=== PATIENT | male | born 1970 | race African-American/Black ===

== ENCOUNTER 2018-07-17 13:00 | Emergency (ER) | payer SELFPAY ==
[2018-07-17] MEDS ORDERED: cloNIDine 0.1 MG Tab PO ONE ×2 (13:16→15:11)
[2018-07-17] MEDS ORDERED: Sodium Chloride 0.9% 1,000 ML IV ONE (13:16)
--- NOTE | 2018-07-17 13:29 | EDM.PDOC ---
ED HPI GENERAL MEDICAL PROBLEM - General Chief Complaint: Cardiovascular Problem Stated Complaint: HIGH BP Time Seen by Provider: 07/17/18 13:03 Source of Information: Reports: Patient History Limitations: Reports: No Limitations - History of Present Illness INITIAL COMMENTS - FREE TEXT/NARRATIVE: HISTORY AND PHYSICAL: History of present illness: Patient is a 48-year-old male who presents to the emergency room for evaluation after being told he had high blood pressure. Patient was at an employment physical when he was told that his blood pressure was 260s over 200's. Patient reports that he was told approximately 6 years ago that he had high blood pressure but then quit smoking and reports that his blood pressure had returned to normal. Review of systems: As per history of present illness and below otherwise all systems reviewed and negative. Past medical history: As per history of present illness and as reviewed below otherwise noncontributory. Surgical history: As per history of present illness and as reviewed below otherwise noncontributory. Social history: See social history for further information Family history: As per history of present illness and as reviewed below otherwise noncontributory. Physical exam: General: Patient is a well-developed and well-nourished 48-year-old - [place] male. Alert and oriented. Nontoxic appearing and in no acute distress. HEENT: Atraumatic, normocephalic, pupils equal and reactive bilaterally, negative for conjunctival pallor or scleral icterus, mucous membranes moist, TMs normal bilaterally, throat clear, neck supple, nontender, trachea midline. No drooling or trismus noted. No meningeal signs. No hot potato voice noted. Lungs: Clear to auscultation, breath sounds equal bilaterally, chest nontender. Heart: S1S2, regular rate and rhythm without overt murmur Abdomen: Soft, nondistended, nontender. Negative for masses or hepatosplenomegaly. Negative for costovertebral tenderness. Pelvis: Stable nontender. Genitourinary: Deferred. Rectal: Deferred. Skin: Intact, warm, dry. No lesions or rashes noted. Extremities: Atraumatic, negative for cords or calf pain. Neurovascular unremarkable. Neuro: Awake, alert, oriented. Cranial nerves II through XII unremarkable. Cerebellum unremarkable. Motor and sensory unremarkable throughout. Exam nonfocal. Notes: Lab work is unremarkable. EKG and chest x-ray are unremarkable. Patient continues to be asymptomatic. Patient most recent blood pressure before discharge is 180/102. Disposition was discussed including admission which he declines. He is aware of the risks of discharge with elevated blood pressure. He states he will follow up closely with a primary care provider, calling in the morning to make an appointment. Discharge instructions were reviewed and discussed. He voices understanding and is agreeable to plan of care. Denies any further questions or concerns at this time. Diagnostics: CBC, CMP, EKG, chest x-ray, UA Therapeutics: IV fluid, clonidine, lisinopril Prescription: Lisinopril Impression: Uncontrolled hypertension Plan: 1. Please start taking an 81 mg aspirin once daily. 2. May start lisinopril 10mg once daily. This medication may need to be adjusted so do not want to to follow-up with the primary care provider for further evaluation and management. Please make a follow-up appointment to be seen in the next 1-2 days. 3. Return to the ED as needed and as discussed. Definitive disposition and diagnosis as appropriate pending reevaluation and review of above. - Related Data Allergies Allergy/AdvReac Type Severity Reaction Status Date / Time No Known Allergies Allergy Verified 07/17/18 13:10 Home Meds: Home Meds Lisinopril [Zestril] 10 mg PO DAILY #30 tablet 07/17/18 [Rx] Past Medical History Cardiovascular History: Reports: Hypertension - Infectious Disease History Infectious Disease History: Reports: None - Past Surgical History Other Musculoskeletal Surgeries/Procedures:: right hand surgery Social & Family History - Family History Family Medical History: Noncontributory - Tobacco Use Smoking Status *Q: Former Smoker Used Tobacco, but Quit: Yes Month/Year Tobacco Last Used: 6 years ago - Recreational Drug Use Recreational Drug Use: No ED ROS GENERAL - Review of Systems Review Of Systems: ROS reveals no pertinent complaints other than HPI. ED EXAM, GENERAL - Physical Exam Exam: See Below (See dictation) Course - Vital Signs Last Recorded V/S: Last Vital Signs Temp 98.2 F 07/17/18 13:02 Pulse 94 07/17/18 13:02 Resp 18 07/17/18 13:02 BP 218/138 H 07/17/18 14:48 Pulse Ox 99 07/17/18 13:02 - Orders/Labs/Meds Orders: Active Orders 24 hr Category Date Time Status EKG Documentation Completion [RC] STAT Care 07/17/18 13:16 Active Labs: Laboratory Tests 07/17/18 07/17/18 07/17/18 Range/Units 13:23 13:23 14:40 WBC 7.34 (4.0-11.0) K/uL RBC 5.75 (4.50-5.90) M/uL Hgb 17.5 H (13.0-17.0) g/dL Hct 50.8 H (38.0-50.0) % MCV 88.3 (80.0-98.0) fL MCH 30.4 (27.0-32.0) pg MCHC 34.4 (31.0-37.0) g/dL RDW Std Deviation 43.3 (28.0-62.0) fl RDW Coeff of Lai 13 (11.0-15.0) % Plt Count 127 L (150-400) K/uL MPV 13.40 H (7.40-12.00) fL Neut % (Auto) 72.2 (48.0-80.0) % Lymph % (Auto) 17.7 (16.0-40.0) % [place] % (Auto) 8.2 (0.0-15.0) % Eos % (Auto) 1.2 (0.0-7.0) % Baso % (Auto) 0.7 (0.0-1.5) % Neut # (Auto) 5.3 (1.4-5.7) K/uL Lymph # (Auto) 1.3 (0.6-2.4) K/uL [place] # (Auto) 0.6 (0.0-0.8) K/uL Eos # (Auto) 0.1 (0.0-0.7) K/uL Baso # (Auto) 0.1 (0.0-0.1) K/uL Nucleated RBC % 0.0 /100WBC Nucleated RBCs # 0 K/uL Sodium 136 (136-148) mmol/L Potassium 3.5 (3.5-5.1) mmol/L Chloride 99 (98-107) mmol/L Carbon Dioxide 27.9 (21.0-32.0) mmol/L BUN 11 (7.0-18.0) mg/dL Creatinine 1.3 (0.8-1.3) mg/dL Est Cr Clr Drug Dosing 68.74 mL/min Estimated GFR (MDRD) 58.7 ml/min Glucose 103 (74-106) mg/dL Calcium 9.5 (8.5-10.1) mg/dL Total Bilirubin 0.6 (0.2-1.0) mg/dL AST 58 H (15-37) IU/L ALT 70 H (14-63) IU/L Alkaline Phosphatase 69 (46-116) U/L Total Protein 8.5 H (6.4-8.2) g/dL Albumin 4.3 (3.4-5.0) g/dL Globulin 4.2 H (2.6-4.0) g/dL Albumin/Globulin Ratio 1.0 (0.9-1.6) Urine Color YELLOW Urine Appearance CLEAR Urine pH 6.0 (5.0-8.0) Ur Specific [place] <= 1.005 (1.001-1.035) Urine Protein NEGATIVE (NEGATIVE) mg/dL Urine Glucose (UA) NEGATIVE (NEGATIVE) mg/dL Urine Ketones NEGATIVE (NEGATIVE) mg/dL Urine Occult Blood NEGATIVE (NEGATIVE) Urine Nitrite NEGATIVE (NEGATIVE) Urine Bilirubin NEGATIVE (NEGATIVE) Urine Urobilinogen 0.2 (<2.0) EU/dL Ur Leukocyte Esterase NEGATIVE (NEGATIVE) Meds: Medications Discontinued Medications Generic Name Dose Route Start Last Admin Trade Name Freq PRN Reason Stop Dose Admin Clonidine HCl 0.1 mg 07/17/18 13:16 07/17/18 13:26 Catapres PO 07/17/18 13:17 0.1 mg ONETIME ONE Administration Clonidine HCl 0.1 mg 07/17/18 15:11 Catapres PO 07/17/18 15:12 ONETIME ONE Sodium Chloride 1,000 mls @ 999 mls/hr 07/17/18 13:16 07/17/18 13:26 Normal Saline IV 07/17/18 14:16 999 mls/hr STAT ONE Administration Lisinopril 20 mg 07/17/18 13:57 07/17/18 14:12 Prinivil PO 07/17/18 13:58 20 mg ONETIME ONE Administration Departure - Departure Time of Disposition: 14:41 Disposition: Home, Self-Care 01 Clinical Impression: Uncontrolled hypertension Prescriptions: Lisinopril [Zestril] 10 mg PO DAILY #30 tablet Instructions: Hypertension Forms: ED Department Discharge Additional Instructions: The following information is given to patients seen in the emergency department who are being discharged to home. This information is to outline your options for follow-up care. We provide all patients seen in our emergency department with a follow-up referral. The need for follow-up, as well as the timing and circumstances, are variable depending upon the specifics of your emergency department visit. If you don't have a primary care physician on staff, we will provide you with a referral. We always advise you to contact your personal physician following an emergency department visit to inform them of the circumstance of the visit and for follow-up with them and/or the need for any referrals to a consulting specialist. The emergency department will also refer you to a specialist when appropriate. This referral assures that you have the opportunity for follow-up care with a specialist. All of these measure are taken in an effort to provide you with optimal care, which includes your follow-up. Under all circumstances we always encourage you to contact your private physician who remains a resource for coordinating your care. When calling for follow-up care, please make the office aware that this follow-up is from your recent emergency room visit. If for any reason you are refused follow-up, please contact the [facility] Emergency Department at and asked to speak to the emergency department charge nurse. [facility] [address] [place] [address] [place] [address] 1. Please start taking an 81 mg aspirin once daily. 2. May start lisinopril 10mg once daily. This medication may need to be adjusted so do not want to to follow-up with the primary care provider for further evaluation and management. Please make a follow-up appointment to be seen in the next 1-2 days. 3. Return to the ED as needed and as discussed. - My Orders Last 24 Hours: My Active Orders 07/17/18 13:16 EKG Documentation Completion [RC] STAT - Assessment/Plan Last 24 Hours: My Active Orders 07/17/18 13:16 EKG Documentation Completion [RC] STAT
[2018-07-17] MEDS ORDERED: Lisinopril 10 MG Tab PO ONE (13:57)
--- NOTE | 2018-07-17 14:00 | CR ---
EXAMINATION: Portable chest radiograph. HISTORY: Hypertension. FINDINGS: The trachea is midline. The cardiomediastinal silhouette is within normal limits. No pulmonary infiltrates, effusions or pneumothorax. Osseous structures appear unremarkable. Cervical fusion hardware noted. IMPRESSION: No acute cardiopulmonary process.
== END 2018-07-17 15:37 | disposition home or self-care (01) ==
LOC: MW.ED 13:00
DX: I10 Essential (primary) hypertension (principal); Z87.891 Personal history of nicotine dependence
CPT/HCPCS: 36415; 71045; 80053; 81003; 85025; 93005; 96360; 99284; A9270; J7040

== ENCOUNTER 2018-09-10 11:10 | Observation (INO) | payer SELFPAY ==
[2018-09-10] MEDS ORDERED: Sodium Chloride 0.9% 10 ML Syringe FLUSH PRN (11:13)
[2018-09-10] MEDS ORDERED: Sodium Chloride 0.9% 2.5 ML Syringe FLUSH PRN (11:13)
--- NOTE | 2018-09-10 11:15 | EDM.PDOC ---
ED HPI GENERAL MEDICAL PROBLEM - General Chief Complaint: Cardiovascular Problem Stated Complaint: CHEST PAINS Time Seen by Provider: 09/10/18 11:12 - History of Present Illness INITIAL COMMENTS - FREE TEXT/NARRATIVE: HISTORY AND PHYSICAL: History of present illness: Patient's a 48-year-old black male with history of hypertension who presents with sternal chest pain it's been intermittent for 4 days he states is no precipitating or aggravating factors she states this is a sharp squeezing pain that comes on somewhat abruptly and he felt maybe due to gas. There's been no associated shortness of breath diaphoresis nausea vomiting or palpitations. He is without chest pain on arrival Review of systems: As per history of present illness and below otherwise all systems reviewed and negative. Past medical history: As per history of present illness and as reviewed below otherwise noncontributory. Surgical history: As per history of present illness and as reviewed below otherwise noncontributory. Social history: No reported history of drug or alcohol abuse. Family history: As per history of present illness and as reviewed below otherwise noncontributory. Physical exam: HEENT: Atraumatic, normocephalic, pupils reactive, negative for conjunctival pallor or scleral icterus, mucous membranes moist, throat clear, neck supple, nontender, trachea midline. Lungs: Clear to auscultation, breath sounds equal bilaterally, chest nontender. Heart: S1S2, regular, negative for clicks, rubs, or JVD. Abdomen: Soft, nondistended, nontender. Negative for masses or hepatosplenomegaly. Negative for costovertebral tenderness. Pelvis: Stable nontender. Genitourinary: Deferred. Rectal: Deferred. Extremities: Atraumatic, negative for cords or calf pain. Neurovascular unremarkable. Neuro: Awake, alert, oriented. Cranial nerves II through XII unremarkable. Cerebellum unremarkable. Motor and sensory unremarkable throughout. Exam nonfocal. Diagnostics: CBC CMP troponin PT/INR lipase chest x-ray EKG Therapeutics: IV O2 monitor Impression: #1 chest pain #2 history of hypertension Definitive disposition and diagnosis as appropriate pending reevaluation and review of above. - Related Data Allergies Allergy/AdvReac Type Severity Reaction Status Date / Time No Known Allergies Allergy Verified 09/10/18 11:17 Home Meds: Home Meds Lisinopril [Zestril] 10 mg PO DAILY #30 tablet 07/17/18 [Rx] Past Medical History Cardiovascular History: Reports: Hypertension - Infectious Disease History Infectious Disease History: Reports: None - Past Surgical History Other Musculoskeletal Surgeries/Procedures:: right hand surgery Social & Family History - Family History Family Medical History: Noncontributory ED ROS GENERAL - Review of Systems Review Of Systems: ROS reveals no pertinent complaints other than HPI. ED EXAM, GENERAL - Physical Exam Exam: See Below (See dictation) Course - Vital Signs Last Recorded V/S: Last Vital Signs Temp 36.8 C 09/10/18 11:10 Pulse 76 09/10/18 11:51 Resp 15 09/10/18 11:51 BP 168/107 H 09/10/18 12:08 Pulse Ox 97 09/10/18 11:51 - Orders/Labs/Meds Orders: Active Orders 24 hr Category Date Time Status Cardiac Monitoring [RC] . DIRECTED Care 09/10/18 11:13 Active EKG Documentation Completion [RC] STAT Care 09/10/18 11:13 Active Chest 1V Frontal [CR] Stat Exams 09/10/18 11:13 Taken Sodium Chloride 0.9% [Saline Flush] Med 09/10/18 11:13 Active 10 ml FLUSH ASDIRECTED PRN Sodium Chloride 0.9% [Saline Flush] Med 09/10/18 11:13 Active 2.5 ml FLUSH ASDIRECTED PRN Saline Lock Insert [OM.PC] Stat Oth 09/10/18 11:13 Ordered Medication Orders Sodium Chloride (Saline Flush) 10 ml FLUSH ASDIRECTED PRN PRN Reason: Keep Vein Open Last Admin: 09/10/18 11:19 Dose: 10 ml Sodium Chloride (Saline Flush) 2.5 ml FLUSH ASDIRECTED PRN PRN Reason: Keep Vein Open Last Admin: 09/10/18 11:19 Dose: 2.5 ml Labs: Laboratory Tests 09/10/18 09/10/18 09/10/18 Range/Units 11:18 11:18 11:18 WBC 7.14 (4.0-11.0) K/uL RBC 5.01 (4.50-5.90) M/uL Hgb 14.7 (13.0-17.0) g/dL Hct 43.4 (38.0-50.0) % MCV 86.6 (80.0-98.0) fL MCH 29.3 (27.0-32.0) pg MCHC 33.9 (31.0-37.0) g/dL RDW Std Deviation 44.6 (28.0-62.0) fl RDW Coeff of Lai 14 (11.0-15.0) % Plt Count 141 L (150-400) K/uL MPV 12.70 H (7.40-12.00) fL Neut % (Auto) 59.6 (48.0-80.0) % Lymph % (Auto) 28.2 (16.0-40.0) % [place] % (Auto) 10.4 (0.0-15.0) % Eos % (Auto) 1.1 (0.0-7.0) % Baso % (Auto) 0.7 (0.0-1.5) % Neut # (Auto) 4.3 (1.4-5.7) K/uL Lymph # (Auto) 2.0 (0.6-2.4) K/uL [place] # (Auto) 0.7 (0.0-0.8) K/uL Eos # (Auto) 0.1 (0.0-0.7) K/uL Baso # (Auto) 0.1 (0.0-0.1) K/uL Nucleated RBC % 0.0 /100WBC Nucleated RBCs # 0 K/uL INR 1.03 Sodium 141 (136-148) mmol/L Potassium 3.5 (3.5-5.1) mmol/L Chloride 104 (98-107) mmol/L Carbon Dioxide 28.1 (21.0-32.0) mmol/L BUN 15 (7.0-18.0) mg/dL Creatinine 1.3 (0.8-1.3) mg/dL Est Cr Clr Drug Dosing 68.74 mL/min Estimated GFR (MDRD) > 60.0 ml/min Glucose 103 (74-106) mg/dL Calcium 8.9 (8.5-10.1) mg/dL Total Bilirubin 0.6 (0.2-1.0) mg/dL AST 27 (15-37) IU/L ALT 35 (14-63) IU/L Alkaline Phosphatase 54 (46-116) U/L Troponin I < 0.050 (0.000-0.056) ng/mL Total Protein 7.5 (6.4-8.2) g/dL Albumin 4.0 (3.4-5.0) g/dL Globulin 3.5 (2.6-4.0) g/dL Albumin/Globulin Ratio 1.1 (0.9-1.6) Lipase 96 (73-393) U/L Meds: Medications Generic Name Dose Route Start Last Admin Trade Name Freq PRN Reason Stop Dose Admin Sodium Chloride 10 ml 09/10/18 11:13 09/10/18 11:19 Saline Flush FLUSH 10 ml ASDIRECTED PRN Administration Keep Vein Open Sodium Chloride 2.5 ml 09/10/18 11:13 09/10/18 11:19 Saline Flush FLUSH 2.5 ml ASDIRECTED PRN Administration Keep Vein Open Discontinued Medications Generic Name Dose Route Start Last Admin Trade Name Freq PRN Reason Stop Dose Admin Aspirin 324 mg 09/10/18 11:16 09/10/18 11:19 Aspirin PO 09/10/18 11:17 324 mg ONETIME ONE Administration Aspirin Confirm 09/10/18 11:17 09/10/18 11:26 Aspirin Administered 09/10/18 11:18 Not Given Dose 324 mg .ROUTE .STK-MED ONE Nitroglycerin 1 gm 09/10/18 11:16 09/10/18 11:19 Nitro-Bid 2% TOP 09/10/18 11:17 1 gm ONETIME ONE Administration Nitroglycerin Confirm 09/10/18 11:17 09/10/18 11:26 Nitro-Bid 2% Administered 09/10/18 11:18 Not Given Dose 1 gm .ROUTE .STK-MED ONE Departure - Departure Time of Disposition: 12:12 Disposition: Refer to Observation Condition: Good Clinical Impression: Chest pain, Hypertension Forms: ED Department Discharge - My Orders Last 24 Hours: My Active Orders 09/10/18 11:13 Cardiac Monitoring [RC] . DIRECTED EKG Documentation Completion [RC] STAT Chest 1V Frontal [CR] Stat Sodium Chloride 0.9% [Saline Flush] 10 ml FLUSH ASDIRECTED PRN Sodium Chloride 0.9% [Saline Flush] 2.5 ml FLUSH ASDIRECTED PRN Saline Lock Insert [OM.PC] Stat - Assessment/Plan Last 24 Hours: My Active Orders 09/10/18 11:13 Cardiac Monitoring [RC] . DIRECTED EKG Documentation Completion [RC] STAT Chest 1V Frontal [CR] Stat Sodium Chloride 0.9% [Saline Flush] 10 ml FLUSH ASDIRECTED PRN Sodium Chloride 0.9% [Saline Flush] 2.5 ml FLUSH ASDIRECTED PRN Saline Lock Insert [OM.PC] Stat
[2018-09-10] MEDS ORDERED: Nitroglycerin 2% Oint 1 GM UD Packet TOP ONE (11:16)
[2018-09-10] MEDS ORDERED: Aspirin 81 MG Tab.Chew PO ONE (11:16)
[2018-09-10] MEDS ORDERED: Nitroglycerin 2% Oint 1 GM UD Packet ONE (11:17)
[2018-09-10] MEDS ORDERED: Aspirin 81 MG Tab.Chew ONE (11:17)
[2018-09-10 11:50] LABS: CHLORIDE,CL 104 mmol/L (98-107); SODIUM,NA 141 mmol/L (136-148)
[2018-09-10] MEDS ORDERED: Nicotine 14 MG/24 Hr Patch TRDERM ONE (12:21)
--- NOTE | 2018-09-10 12:28 | CR ---
INDICATION: Chest pain TECHNIQUE: Chest 1 view COMPARISON: None available FINDINGS: The heart appears borderline enlarged, however this is likely accentuated due to AP technique. The lungs are clear. The pulmonary vasculature is within normal limits. The visualized osseous structures are grossly unremarkable. IMPRESSION: No acute cardiopulmonary process. Dictated by Keke Roblero MD @ 09/10/2018 12:25:54 PM Dictated by: Keke Roblero MD @ 09/10/2018 12:26:01 (Electronically Signed)
[2018-09-10] MEDS ORDERED: Ondansetron 4 MG/2 ML SDV IVPUSH PRN (18:44)
--- NOTE | 2018-09-10 18:48 | PCM.HP ---
H&P History of Present Illness - General Date of Service: 09/10/18 Admit Problem/Dx: Admission Diagnosis/Problem Admission Diagnosis/Problem Chest pain, rule out acute myocardial infarction - History of Present Illness Initial Comments - Free Text/Narative: 48 yo male with pmh of hypertension who presents with four day history of chest pain. The pain is intermitent substernal chest pressure. He describes it as a baseball under his sternum. Nothing makes it better or worse besides time. He denies any shortness of breath, cough, or fevers. He thinks the pain is from gas. Epigastric Pain Score (Numeric/FACES): 1 - Related Data Allergies/Adverse Reactions: Allergies Allergy/AdvReac Type Severity Reaction Status Date / Time No Known Allergies Allergy Verified 09/10/18 11:17 Home Medications: Home Meds Lisinopril [Zestril] 10 mg PO DAILY #30 tablet 07/17/18 [Rx] Diltiazem [Cardizem CD] 120 mg PO DAILY #30 cap.cd 09/11/18 [Rx] Pantoprazole [ProTONIX] 40 mg PO DAILY #30 tab.cr 09/11/18 [Rx] Past Medical History HEENT History: Reports: Impaired Vision Other HEENT History: glasses Cardiovascular History: Reports: Hypertension Genitourinary History: Reports: Other (See Below) Other Genitourinary History: reports bph symptoms - Infectious Disease History Infectious Disease History: Reports: None - Past Surgical History Musculoskeletal Surgical History: Reports: Other (See Below) Other Musculoskeletal Surgeries/Procedures:: right hand surgery Social & Family History - Family History Family Medical History: Noncontributory - Tobacco Use Smoking Status *Q: Former Smoker Years of Tobacco use: 6 Packs/Tins Daily: 0.5 Used Tobacco, but Quit: Yes Month/Year Tobacco Last Used: 6 yrs ago Tobacco Use Comment: pt states vapes, approx equal to 1 pdd - Caffeine Use Caffeine Use: Reports: None - Alcohol Use Days Per Week of Alcohol Use: 3 Number of Drinks Per Day: 2 Total Drinks Per Week: 6 - Recreational Drug Use Recreational Drug Use: No H&P Review of Systems - Review of Systems: Review Of Systems: ROS reveals no pertinent complaints other than HPI. Exam - Exam Exam: See Below - Vital Signs Vital Signs: Last Vital Signs Temp 36.6 C 09/10/18 16:00 Pulse 76 09/10/18 16:00 Resp 16 09/10/18 16:00 BP 161/95 H 09/10/18 16:00 Pulse Ox 97 09/10/18 16:00 Weight: 88.451 kg - Exam General: Alert, Oriented HEENT: Mucosa Moist & [place] Lungs: Clear to Auscultation, Normal Respiratory Effort Cardiovascular: Regular Rate, Regular Rhythm GI/Abdominal Exam: Normal Bowel Sounds, Soft, Non-Tender Extremities: Non-Tender, No Pedal Edema Skin: Warm, Dry, Intact - Patient Data Lab Results Last 24 hrs: Laboratory Results - last 24 hr 09/10/18 09/10/18 09/10/18 Range/Units 11:18 11:18 11:18 WBC 7.14 (4.0-11.0) K/uL RBC 5.01 (4.50-5.90) M/uL Hgb 14.7 (13.0-17.0) g/dL Hct 43.4 (38.0-50.0) % MCV 86.6 (80.0-98.0) fL MCH 29.3 (27.0-32.0) pg MCHC 33.9 (31.0-37.0) g/dL RDW Std Deviation 44.6 (28.0-62.0) fl RDW Coeff of Lai 14 (11.0-15.0) % Plt Count 141 L (150-400) K/uL MPV 12.70 H (7.40-12.00) fL Neut % (Auto) 59.6 (48.0-80.0) % Lymph % (Auto) 28.2 (16.0-40.0) % [place] % (Auto) 10.4 (0.0-15.0) % Eos % (Auto) 1.1 (0.0-7.0) % Baso % (Auto) 0.7 (0.0-1.5) % Neut # (Auto) 4.3 (1.4-5.7) K/uL Lymph # (Auto) 2.0 (0.6-2.4) K/uL [place] # (Auto) 0.7 (0.0-0.8) K/uL Eos # (Auto) 0.1 (0.0-0.7) K/uL Baso # (Auto) 0.1 (0.0-0.1) K/uL Nucleated RBC % 0.0 /100WBC Nucleated RBCs # 0 K/uL INR 1.03 Sodium 141 (136-148) mmol/L Potassium 3.5 (3.5-5.1) mmol/L Chloride 104 (98-107) mmol/L Carbon Dioxide 28.1 (21.0-32.0) mmol/L BUN 15 (7.0-18.0) mg/dL Creatinine 1.3 (0.8-1.3) mg/dL Est Cr Clr Drug Dosing 68.74 mL/min Estimated GFR (MDRD) > 60.0 ml/min Glucose 103 (74-106) mg/dL Calcium 8.9 (8.5-10.1) mg/dL Total Bilirubin 0.6 (0.2-1.0) mg/dL AST 27 (15-37) IU/L ALT 35 (14-63) IU/L Alkaline Phosphatase 54 (46-116) U/L Troponin I < 0.050 (0.000-0.056) ng/mL Total Protein 7.5 (6.4-8.2) g/dL Albumin 4.0 (3.4-5.0) g/dL Globulin 3.5 (2.6-4.0) g/dL Albumin/Globulin Ratio 1.1 (0.9-1.6) Lipase 96 (73-393) U/L // Range/Units 17:20 WBC (4.0-11.0) K/uL RBC (4.50-5.90) M/uL Hgb (13.0-17.0) g/dL Hct (38.0-50.0) % MCV (80.0-98.0) fL MCH (27.0-32.0) pg MCHC (31.0-37.0) g/dL RDW Std Deviation (28.0-62.0) fl RDW Coeff of Lai (11.0-15.0) % Plt Count (150-400) K/uL MPV (7.40-12.00) fL Neut % (Auto) (48.0-80.0) % Lymph % (Auto) (16.0-40.0) % [place] % (Auto) (0.0-15.0) % Eos % (Auto) (0.0-7.0) % Baso % (Auto) (0.0-1.5) % Neut # (Auto) (1.4-5.7) K/uL Lymph # (Auto) (0.6-2.4) K/uL [place] # (Auto) (0.0-0.8) K/uL Eos # (Auto) (0.0-0.7) K/uL Baso # (Auto) (0.0-0.1) K/uL Nucleated RBC % /100WBC Nucleated RBCs # K/uL INR Sodium (136-148) mmol/L Potassium (3.5-5.1) mmol/L Chloride (98-107) mmol/L Carbon Dioxide (21.0-32.0) mmol/L BUN (7.0-18.0) mg/dL Creatinine (0.8-1.3) mg/dL Est Cr Clr Drug Dosing mL/min Estimated GFR (MDRD) ml/min Glucose (74-106) mg/dL Calcium (8.5-10.1) mg/dL Total Bilirubin (0.2-1.0) mg/dL AST (15-37) IU/L ALT (14-63) IU/L Alkaline Phosphatase (46-116) U/L Troponin I < 0.050 (0.000-0.056) ng/mL Total Protein (6.4-8.2) g/dL Albumin (3.4-5.0) g/dL Globulin (2.6-4.0) g/dL Albumin/Globulin Ratio (0.9-1.6) Lipase (73-393) U/L Result Diagrams: 09/10/18 11:18 09/10/18 11:18 Problem List Initiated/Reviewed/Updated: Yes Orders Last 24hrs: Active Orders 24 hr Category Date Time Status Admission Status [Patient Status] [ADT] Stat ADT 09/10/18 12:12 Active Antiembolic Devices [RC] PER UNIT ROUTINE Care 09/10/18 18:45 Ordered Cardiac Monitoring [RC] . DIRECTED Care 09/10/18 11:13 Active Oxygen Therapy [RC] PRN Care 09/10/18 18:44 Ordered Telemetry Monitoring [Cardiac Monitoring] [RC] Q8H Care 09/10/18 11:15 Active Up ad Triny [RC] ASDIRECTED Care 09/10/18 18:44 Ordered VTE/DVT Education [RC] PER UNIT ROUTINE Care 09/10/18 18:44 Ordered Vital Signs [RC] Q4H Care 09/10/18 18:44 Ordered Cardiac [Heart Healthy Diet] [DIET] Diet 09/10/18 Dinner Active TROPONIN I [CHEM] Routine Lab 09/10/18 23:18 Ordered Lisinopril [Prinivil] Med 09/11/18 09:00 Ordered 10 mg PO DAILY Ondansetron [Zofran] Med 09/10/18 18:44 Ordered 4 mg IVPUSH Q4H PRN Pantoprazole [ProTONIX] Med 09/10/18 18:45 Ordered 40 mg PO DAILY Sodium Chloride 0.9% [Saline Flush] Med 09/10/18 11:13 Active 10 ml FLUSH ASDIRECTED PRN Sodium Chloride 0.9% [Saline Flush] Med 09/10/18 11:13 Active 2.5 ml FLUSH ASDIRECTED PRN Saline Lock Insert [OM.PC] Stat Oth 09/10/18 11:13 Ordered Sequential Compression Device [OM.PC] Per Unit Routine Oth 09/10/18 18:44 Ordered Resuscitation Status Routine Resus Stat 09/10/18 18:44 Ordered Medication Orders Lisinopril (Prinivil) 10 mg PO DAILY ANJALI Pantoprazole Sodium (Protonix) 40 mg PO DAILY ANJALI Sodium Chloride (Saline Flush) 10 ml FLUSH ASDIRECTED PRN PRN Reason: Keep Vein Open Last Admin: 09/10/18 11:19 Dose: 10 ml Sodium Chloride (Saline Flush) 2.5 ml FLUSH ASDIRECTED PRN PRN Reason: Keep Vein Open Last Admin: 09/10/18 11:19 Dose: 2.5 ml Assessment/Plan Comment:: 48 yo male who presents with chest pain. Will trend cardiac enzymes to rule out acute coronary syndrome.
[2018-09-10] MEDS: Pantoprazole 40 MG Tab.CR PO SCH (19:10)
[2018-09-11] MEDS: Pantoprazole 40 MG Tab.CR PO SCH (08:14)
[2018-09-11 08:46] LABS: HEMOGLOBIN A1C 6.1 % (4.5-6.2)
[2018-09-11] MEDS ORDERED: Lisinopril 10 MG Tab PO SCH (09:00)
[2018-09-11] MEDS ORDERED: Diltiazem 120 MG Cap.CD PO SCH (11:15)
--- NOTE | 2018-09-11 11:17 | PCM.DCSUM1 ---
Discharge Summary - Hospital Course Brief History: 48 yo male with pmh of hypertension who presents with four day history of chest pain. The pain is intermitent substernal chest pressure. He describes it as a baseball under his sternum. Nothing makes it better or worse besides time. He denies any shortness of breath, cough, or fevers. He thinks the pain is from gas. Diagnosis: Stroke: No - Discharge Data Discharge Date: 09/11/18 Discharge Disposition: Home, Self-Care 01 Condition: Good - Patient Instructions Diet: Heart Healthy Diet Activity: As Tolerated Showering/Bathing: October Shower Notify Provider of: Fever, Increased Pain, Swelling and Redness, Drainage, Nausea and/or Vomiting - Discharge Plan *PRESCRIPTION DRUG MONITORING PROGRAM REVIEWED*: Not Applicable *COPY OF PRESCRIPTION DRUG MONITORING REPORT IN PATIENT SYLVIA: Not Applicable Prescriptions/Med Rec: Diltiazem [Cardizem CD] 120 mg PO DAILY #30 cap.cd Pantoprazole [ProTONIX] 40 mg PO DAILY #30 tab.cr Home Medications: Home Meds Lisinopril [Zestril] 10 mg PO DAILY #30 tablet 07/17/18 [Rx] Diltiazem [Cardizem CD] 120 mg PO DAILY #30 cap.cd 09/11/18 [Rx] Pantoprazole [ProTONIX] 40 mg PO DAILY #30 tab.cr 09/11/18 [Rx] Patient Handouts: Nonspecific Chest Pain, [id number], Pantoprazole tablets, Diltiazem tablets, Hypertension Referrals: Armond Moore MD [Resident] - 09/18/18 2:00 pm Davi Resendiz [Ordering Only Provider] - - Discharge Summary/Plan Comment DC Time >30 min.: No Discharge Summary/Plan Comment: Discharge Diagnoses: Chest pain -resolved HTN GERD Earnest was admitted for chest pain. Monitored on telemetry, no EKG changes. No further chest pain. Troponins negative, ACS ruled otu. BP remained elevated 170 /100. Continue Lisinopril, but will add Diltiazem 120 mg daily. He is to follow with PCP to monitor BP. He is to have stress test as outpatient to further evaluate for CAD. Total cholesterol 174, HDL 74, LDL 86. A1c 6.1. he was educated on life style change and the need to lower BP. He will also be sent home with Protonix x 1 month for GERD. He is to return to ED or clinic if concerns should arise. - General Info Date of Service: 09/11/18 Admission Dx/Problem (Free Text: Admission Diagnosis/Problem Admission Diagnosis/Problem Chest pain, rule out acute myocardial infarction Subjective Update: Feeling better this morning. Eating well. No chest pain. Eager to go home and back to work. Functional Status: Reports: Pain Controlled, Tolerating Diet, Ambulating, Urinating - Review of Systems General: Reports: No Symptoms. Denies: Fever, Weakness, Fatigue HEENT: Reports: No Symptoms. Denies: Contact Lenses, Visual Changes Pulmonary: Reports: No Symptoms. Denies: Shortness of Breath Cardiovascular: Reports: No Symptoms. Denies: Chest Pain Gastrointestinal: Reports: No Symptoms. Denies: Abdominal Pain, Melena, Nausea , Vomiting Genitourinary: Reports: No Symptoms. Denies: Dysuria, Frequency, Burning Musculoskeletal: Reports: No Symptoms Skin: Reports: No Symptoms Neurological: Reports: No Symptoms Psychiatric: Reports: No Symptoms - Patient Data Vitals - Most Recent: Last Vital Signs Temp 98.6 F 09/11/18 07:28 Pulse 68 09/11/18 07:28 Resp 14 09/11/18 07:28 BP 173/114 H 09/11/18 08:14 Pulse Ox 97 09/11/18 07:28 Weight - Most Recent: 88.451 kg I&O - Last 24 hours: Intake & Output 09/10/18 09/11/18 09/11/18 22:59 06:59 14:59 Intake Total 400 480 Output Total 475 Balance 400 5 Lab Results - Last 24 hrs: Laboratory Results - last 24 hr 09/10/18 09/10/18 09/10/18 Range/Units 11:13 11:13 11:18 WBC 7.14 (4.0-11.0) K/uL RBC 5.01 (4.50-5.90) M/uL Hgb 14.7 (13.0-17.0) g/dL Hct 43.4 (38.0-50.0) % MCV 86.6 (80.0-98.0) fL MCH 29.3 (27.0-32.0) pg MCHC 33.9 (31.0-37.0) g/dL RDW Std Deviation 44.6 (28.0-62.0) fl RDW Coeff of Lai 14 (11.0-15.0) % Plt Count 141 L (150-400) K/uL MPV 12.70 H (7.40-12.00) fL Neut % (Auto) 59.6 (48.0-80.0) % Lymph % (Auto) 28.2 (16.0-40.0) % [place] % (Auto) 10.4 (0.0-15.0) % Eos % (Auto) 1.1 (0.0-7.0) % Baso % (Auto) 0.7 (0.0-1.5) % Neut # (Auto) 4.3 (1.4-5.7) K/uL Lymph # (Auto) 2.0 (0.6-2.4) K/uL [place] # (Auto) 0.7 (0.0-0.8) K/uL Eos # (Auto) 0.1 (0.0-0.7) K/uL Baso # (Auto) 0.1 (0.0-0.1) K/uL Nucleated RBC % 0.0 /100WBC Nucleated RBCs # 0 K/uL INR Sodium (136-148) mmol/L Potassium (3.5-5.1) mmol/L Chloride (98-107) mmol/L Carbon Dioxide (21.0-32.0) mmol/L BUN (7.0-18.0) mg/dL Creatinine (0.8-1.3) mg/dL Est Cr Clr Drug Dosing mL/min Estimated GFR (MDRD) ml/min Glucose (74-106) mg/dL Hemoglobin A1c 6.1 (4.5-6.2) % Calcium (8.5-10.1) mg/dL Total Bilirubin (0.2-1.0) mg/dL AST (15-37) IU/L ALT (14-63) IU/L Alkaline Phosphatase (46-116) U/L Troponin I (0.000-0.056) ng/mL Total Protein (6.4-8.2) g/dL Albumin (3.4-5.0) g/dL Globulin (2.6-4.0) g/dL Albumin/Globulin Ratio (0.9-1.6) Triglycerides 68 (0-200) mg/dL Cholesterol 174 (50-200) mg/dL LDL Cholesterol, Calc 86 (60-180) mg/dL VLDL Cholesterol 13 (5-55) mg/dL HDL Cholesterol 74 H (40-60) mg/dL Cholesterol/HDL Ratio 2.4 L (3.3-6.0) Lipase (73-393) U/L 09/10/18 09/10/18 09/10/18 Range/Units 11:18 11:18 17:20 WBC (4.0-11.0) K/uL RBC (4.50-5.90) M/uL Hgb (13.0-17.0) g/dL Hct (38.0-50.0) % MCV (80.0-98.0) fL MCH (27.0-32.0) pg MCHC (31.0-37.0) g/dL RDW Std Deviation (28.0-62.0) fl RDW Coeff of Lai (11.0-15.0) % Plt Count (150-400) K/uL MPV (7.40-12.00) fL Neut % (Auto) (48.0-80.0) % Lymph % (Auto) (16.0-40.0) % [place] % (Auto) (0.0-15.0) % Eos % (Auto) (0.0-7.0) % Baso % (Auto) (0.0-1.5) % Neut # (Auto) (1.4-5.7) K/uL Lymph # (Auto) (0.6-2.4) K/uL [place] # (Auto) (0.0-0.8) K/uL Eos # (Auto) (0.0-0.7) K/uL Baso # (Auto) (0.0-0.1) K/uL Nucleated RBC % /100WBC Nucleated RBCs # K/uL INR 1.03 Sodium 141 (136-148) mmol/L Potassium 3.5 (3.5-5.1) mmol/L Chloride 104 (98-107) mmol/L Carbon Dioxide 28.1 (21.0-32.0) mmol/L BUN 15 (7.0-18.0) mg/dL Creatinine 1.3 (0.8-1.3) mg/dL Est Cr Clr Drug Dosing 68.74 mL/min Estimated GFR (MDRD) > 60.0 ml/min Glucose 103 (74-106) mg/dL Hemoglobin A1c (4.5-6.2) % Calcium 8.9 (8.5-10.1) mg/dL Total Bilirubin 0.6 (0.2-1.0) mg/dL AST 27 (15-37) IU/L ALT 35 (14-63) IU/L Alkaline Phosphatase 54 (46-116) U/L Troponin I < 0.050 < 0.050 (0.000-0.056) ng/mL Total Protein 7.5 (6.4-8.2) g/dL Albumin 4.0 (3.4-5.0) g/dL Globulin 3.5 (2.6-4.0) g/dL Albumin/Globulin Ratio 1.1 (0.9-1.6) Triglycerides (0-200) mg/dL Cholesterol (50-200) mg/dL LDL Cholesterol, Calc (60-180) mg/dL VLDL Cholesterol (5-55) mg/dL HDL Cholesterol (40-60) mg/dL Cholesterol/HDL Ratio (3.3-6.0) Lipase 96 (73-393) U/L 09/10/18 Range/Units 23:33 WBC (4.0-11.0) K/uL RBC (4.50-5.90) M/uL Hgb (13.0-17.0) g/dL Hct (38.0-50.0) % MCV (80.0-98.0) fL MCH (27.0-32.0) pg MCHC (31.0-37.0) g/dL RDW Std Deviation (28.0-62.0) fl RDW Coeff of Lai (11.0-15.0) % Plt Count (150-400) K/uL MPV (7.40-12.00) fL Neut % (Auto) (48.0-80.0) % Lymph % (Auto) (16.0-40.0) % [place] % (Auto) (0.0-15.0) % Eos % (Auto) (0.0-7.0) % Baso % (Auto) (0.0-1.5) % Neut # (Auto) (1.4-5.7) K/uL Lymph # (Auto) (0.6-2.4) K/uL [place] # (Auto) (0.0-0.8) K/uL Eos # (Auto) (0.0-0.7) K/uL Baso # (Auto) (0.0-0.1) K/uL Nucleated RBC % /100WBC Nucleated RBCs # K/uL INR Sodium (136-148) mmol/L Potassium (3.5-5.1) mmol/L Chloride (98-107) mmol/L Carbon Dioxide (21.0-32.0) mmol/L BUN (7.0-18.0) mg/dL Creatinine (0.8-1.3) mg/dL Est Cr Clr Drug Dosing mL/min Estimated GFR (MDRD) ml/min Glucose (74-106) mg/dL Hemoglobin A1c (4.5-6.2) % Calcium (8.5-10.1) mg/dL Total Bilirubin (0.2-1.0) mg/dL AST (15-37) IU/L ALT (14-63) IU/L Alkaline Phosphatase (46-116) U/L Troponin I < 0.050 (0.000-0.056) ng/mL Total Protein (6.4-8.2) g/dL Albumin (3.4-5.0) g/dL Globulin (2.6-4.0) g/dL Albumin/Globulin Ratio (0.9-1.6) Triglycerides (0-200) mg/dL Cholesterol (50-200) mg/dL LDL Cholesterol, Calc (60-180) mg/dL VLDL Cholesterol (5-55) mg/dL HDL Cholesterol (40-60) mg/dL Cholesterol/HDL Ratio (3.3-6.0) Lipase (73-393) U/L Med Orders - Current: Current Medications Diltiazem HCl (Cardizem Cd) 120 mg PO DAILY [facility] Lisinopril (Prinivil) 10 mg PO DAILY [facility] Last Admin: 09/11/18 08:14 Dose: 10 mg Ondansetron HCl (Zofran) 4 mg IVPUSH Q4H PRN PRN Reason: Nausea Pantoprazole Sodium (Protonix) 40 mg PO DAILY ANJALI Last Admin: 09/11/18 08:14 Dose: 40 mg Sodium Chloride (Saline Flush) 10 ml FLUSH ASDIRECTED PRN PRN Reason: Keep Vein Open Last Admin: 09/10/18 11:19 Dose: 10 ml Sodium Chloride (Saline Flush) 2.5 ml FLUSH ASDIRECTED PRN PRN Reason: Keep Vein Open Last Admin: 09/10/18 11:19 Dose: 2.5 ml Discontinued Medications Aspirin (Aspirin) 324 mg PO ONETIME ONE Stop: 09/10/18 11:17 Last Admin: 09/10/18 11:19 Dose: 324 mg Aspirin (Aspirin) Confirm Administered Dose 324 mg .ROUTE .STK-MED ONE Stop: 09/10/18 11:18 Last Admin: 09/10/18 11:26 Dose: Not Given Nicotine (Habitrol) 14 mg TRDERM ONETIME ONE Stop: 09/10/18 12:22 Last Admin: 09/10/18 12:25 Dose: 14 mg Nitroglycerin (Nitro-Bid 2%) 1 gm TOP ONETIME ONE Stop: 09/10/18 11:17 Last Admin: 09/10/18 11:19 Dose: 1 gm Nitroglycerin (Nitro-Bid 2%) Confirm Administered Dose 1 gm .ROUTE .STK-MED ONE Stop: 09/10/18 11:18 Last Admin: 09/10/18 11:26 Dose: Not Given - Exam Quality Assessment: Denies: Supplemental Oxygen General: Reports: Alert, Oriented, Cooperative Neck: Reports: Supple Lungs: Reports: Clear to Auscultation, Normal Respiratory Effort Cardiovascular: Reports: Regular Rate, Regular Rhythm, No Murmurs GI/Abdominal Exam: Normal Bowel Sounds, Soft, Non-Tender Back Exam: Reports: Normal Inspection, Full Range of Motion Skin: Reports: Warm, Dry Psy/Mental Status: Reports: Alert, Normal Affect, Normal Mood
== END 2018-09-11 13:30 | disposition home or self-care (01) ==
LOC: MW.ED 11:10 → MW.MS 12:26
PROVIDERS: ADMIT Internal Medicine; ATTEND Internal Medicine
DX: R07.2 Precordial pain (principal); I10 Essential (primary) hypertension; K21.9 Gastro-esophageal reflux disease without esophagitis; Z87.891 Personal history of nicotine dependence; Z79.899 Other long term (current) drug therapy
CPT/HCPCS: 36415; 71045; 80053; 80061; 83036; 83690; 84484; 85025; 85610; 93005; 99285; A9270; G0378